=== PATIENT | female | born 1960 | race Caucasian/White ===

== ENCOUNTER 2016-08-02 06:27 | Day surgery (SDC) | payer OTHER ==
[2016-08-02] MEDS ORDERED: FENTANYL PF 100MCG/2ML VIAL IV ONE (13:28)
[2016-08-02] MEDS ORDERED: LIDOCAINE 2% MDV (20MG/ML) 20ML VIAL IV ONE (13:28)
[2016-08-02] MEDS ORDERED: PROPOFOL 10 MG/ML VIAL IV ONE (13:28)
--- NOTE | 2016-08-06 15:30 | Operative Note ---
DATE OF SURGERY: 08/02/2016 REQUESTING PHYSICIAN: Agnieszka Ferraro MD, FACP SURGEON: Babs Torres MD POSTOPERATIVE DIAGNOSES: 1. Normal esophagus. 2. Small hiatal hernia. 3. Mild gastritis. 3. Normal duodenum with no evidence of bleed or any ulcers. OPERATION: ESOPHAGOGASTRODUODENOSCOPY and exam. REASON FOR PROCEDURE: This is a 55-year-old female with a history of intermittent episodes of coffee-ground emesis presenting for esophagogastroduodenoscopy. SEDATION: Sedation as per anesthesia. Pulse oximetry was monitored throughout the duration of the procedure to maintain O2 saturation of 90% or greater. Supplemental oxygen was administered via nasal cannula. Cardiac and vital signs were monitored throughout the duration of the procedure and they were stable. PROCEDURE: Description of the procedure of esophagogastroduodenoscopy, risks and alternatives to the procedure including the risk of bleeding and perforation among others were explained to the patient who voiced understanding and decided to proceed. Physical examination was performed and the patient was found stable for sedation. The patient was then placed in the left lateral position and sedation was initiated. A plastic bite block was inserted into the oral cavity. A lubricated Olympus GIF-180 gastroscope was introduced into the oral cavity and advanced through the proximal esophagus without difficulty. The esophagus was carefully examined upon insertion of the gastroscope. The proximal, mid and distal esophageal mucosa appeared normal. The gastroscope was then advanced to the stomach. Serial examination of the stomach revealed mild erythema along the gastric antrum and body but no ulcers or any AVMs were noted. The gastroscope was then advanced to the descending duodenum without difficulty. The duodenal bulb and descending duodenal mucosa appeared normal. The gastroscope was then withdrawn into the stomach and retroflexion was performed. There were no other lesions noted. The gastroscope was then straightened and withdrawn, very carefully re-examining the gastric and esophageal mucosa and no other lesions were noted. Multiple gastric biopsies were obtained. The patient remained with stable vital signs and was sent to the recovery room. PLAN AND RECOMMENDATIONS: 1. She is to continue on her proton pump inhibitors. 2. We will follow up on the biopsies. 3. The risk of bleeding is pretty high with antiplatelet agents, and therefore, care should be exercised and medications prescribed with risk and benefit ratio assessment. Thank you for allowing me to participate in the care of this patient. Babs Torres MD CC: AGNIESZKA FERRARO MD, LEXX BOYD
== END 2016-08-02 08:22 | disposition home or self-care (01) ==
LOC: HOP 06:27
PROVIDERS: ATTEND Internal Medicine Gastroenterology
DX: K29.60 Other gastritis without bleeding (principal); K44.9 Diaphragmatic hernia without obstruction or gangrene; I10 Essential (primary) hypertension; E03.9 Hypothyroidism, unspecified; Z79.01 Long term (current) use of anticoagulants
CPT/HCPCS: 43239; 00740; J3010